=== PATIENT | female | born 1990 | race Caucasian/White ===

== ENCOUNTER → 2018-01-17 | Outpatient (CLI) | payer OTHER ==
[2018-01-17] MEDS: IOHEXOL 180 MG/ML 10 ML VIAL. INT UTERIN (10:08)
== END | disposition home or self-care (01) ==
LOC: KCIC 08:50
DX: N97.9 Female infertility, unspecified (principal); N88.8 Other specified noninflammatory disorders of cervix uteri
CPT/HCPCS: 74400; Q9965